=== PATIENT | female | born 1975 | race Caucasian/White ===

== ENCOUNTER → 2025-02-04 13:38 | Outpatient (BNVA) | payer OTHER, SELFPAY | PROVIDERS: Visit Provider Physician Assistant Medical | DX: S83.91XA Sprain of unspecified site of right knee, initial encounter (principal); W03.XXXA Other fall on same level due to collision with another person, initial encounter | CPT/HCPCS: 73564; 99203 ==

== ENCOUNTER → 2025-02-07 13:54 | Outpatient (BNVA) | payer OTHER, SELFPAY | PROVIDERS: Visit Provider Physician Assistant Medical | DX: M70.51 Other bursitis of knee, right knee (principal) | CPT/HCPCS: 99213 ==

== ENCOUNTER → 2025-03-05 13:49 | Outpatient (BNVA) | payer OTHER, SELFPAY | PROVIDERS: Visit Provider Physician Assistant Medical | DX: M25.561 Pain in right knee (principal); M23.51 Chronic instability of knee, right knee | CPT/HCPCS: 99213 ==

== ENCOUNTER 2025-04-21 08:51 | Outpatient (REF) | payer OTHER, SELFPAY ==
--- NOTE | ~2025-04-21 | MR_ITS ---
CLINICAL HISTORY: PERSISTANT JOINT PAIN MR right knee without gadolinium Comparison: 02/04/2025 Findings: No acute fracture or pathologic bone lesion. No joint effusion. No tears of the cruciate or collateral ligaments. No disruption of the patellar retinacula or iliotibial band. Quadriceps, patellar, popliteus, and flexor tendons are intact. The menisci are intact. IMPRESSION: Unremarkable knee MRI. This document has been electronically signed by: Gary Palomino MD on 04/22/2025 08:49:52
== END 2025-04-21 08:52 | disposition home or self-care (01) ==
LOC: HO.MRI 08:51
PROVIDERS: PCP Internal Medicine; Visit Provider Internal Medicine
DX: M25.561 Pain in right knee (principal)
CPT/HCPCS: 73721

== ENCOUNTER → 2025-04-21 08:56 | Outpatient (BNV) | payer OTHER, SELFPAY | PROVIDERS: PCP Internal Medicine; Visit Provider Specialist | DX: M25.561 Pain in right knee (principal) | CPT/HCPCS: 73721 ==

== ENCOUNTER → 2025-04-23 13:43 | Outpatient (BNVA) | payer OTHER, SELFPAY | PROVIDERS: PCP Internal Medicine; Visit Provider Physician Assistant Medical | DX: M25.561 Pain in right knee (principal); S83.91XD Sprain of unspecified site of right knee, subsequent encounter; W03.XXXD Other fall on same level due to collision with another person, subsequent encounter; Z02.79 Encounter for issue of other medical certificate | CPT/HCPCS: 99213 ==